=== PATIENT | female | born 1940 | race Caucasian/White ===

== ENCOUNTER → 2019-04-12 | Day surgery (SDC) | payer MEDICARE, MEDICAID ==
[~2019-04-12] MED LIST: LIDOCAINE HCL 1% 20ML VIAL (Pyxis) INJ ONE; SODIUM BICARBONATE 4% (2.4MEQ) 5ML VIAL IV ONE
== END | disposition home or self-care (01) ==
LOC: RAD 10:13 → EDBD 11:00
PROVIDERS: ATTEND Internal Medicine
DX: E04.1 Nontoxic single thyroid nodule (principal)
CPT/HCPCS: 10005; 88172; 88173; J3490